=== PATIENT | female | born 1995 | race African-American/Black ===

== ENCOUNTER 2021-06-28 05:38 | Emergency (ER) | payer BC ==
[~2021-06-28] VITALS: Ht 160 cm; Wt 56.7 kg
[2021-06-28 05:52] VITALS: BP 130/59
[2021-06-28] MEDS ORDERED: CARI350T PO (06:46)
== END 2021-06-28 06:57 | disposition home or self-care (01) ==
LOC: ER 05:44
DX: M25.512 Pain in left shoulder (principal); J45.909 Unspecified asthma, uncomplicated; Z88.0 Allergy status to penicillin; Z79.899 Other long term (current) drug therapy
CPT/HCPCS: 71045-TC; 73030-TC